=== PATIENT | female | born 1990 | race Caucasian/White ===

== ENCOUNTER 2021-01-25 15:31 | Outpatient (CLI) | payer OTHER ==
[2021-01-25 16:34] VITALS: BP 132/89; PULSE 69; RESP 17; TEMP 96
--- NOTE | 2021-01-27 07:51 | P.MSEPDOC ---
Presenting Problems - Arrival Data Date of Arrival on Unit: 01/25/21 Time of Arrival on Unit: 15:31 Mode of Transport: Ambulatory - Complaint OB-Reason for Admission/Chief Complaint: Other Comment: brown discharge this morning Medical History - Information : 1 Para: 0 Term: 0 : 0 Abortions: Spontaneous or Elective: 0 Number of Living Children: 0 - Gestational Age Gestational Age by ABIDA (wks/days): 34 Weeks and 6 Days Review of Systems - Review of Systems Constitutional: No problems Breast: No problems ENT: No problems Cardiovascular: No problems Respiratory: No problems Gastrointestinal: No problems Genitourinary: No problems Musculoskeletal: No problems Neurological: No problems Skin: No problems Vital Signs - Temperature Temperature: 96.0 F Temperature Source: Axillary - Pulse Right Brachial Pulse Rate: 69 Pulse Assessment Method: Automatic Cuff - Respirations Respiratory Rate: 17 Oxygen Delivery Method: Room Air O2 Sat by Pulse Oximetry: 98 - Blood Pressure Right Arm Blood Pressure: 132/89 Blood Pressure Mean: 103 Blood Pressure Source: Automatic Cuff Medical Screen Scoring (Pre) - Cervical Exam Dilation: Exam Deferred Effacement: Exam Deferred Membranes: Intact - Uterine Contractions Frequency: > 5 minutes apart = 1 Duration: N/A Intensity: N/A - Maternal Vital Signs Maternal Temperature: N/A Maternal Blood Pressure: N/A Signs of Preeclampsia: N/A Maternal Respirations: N/A - Maternal Trauma Maternal Trauma: N/A - Assessment - Baby A Baseline FHR: 135 Heart Rate - NICHD Category: Category I (Normal) = 0 NST: Reactive Position: N/A - Total Score - Baby A Total Score - Baby A: 1 - Total Score - Baby B Total Score - Baby B: 1 - Total Score - Baby C Total Score - Baby C: 1 - Level of Risk - Baby A Level of Risk - Baby A: Low (0-5) - Level of Risk - Baby B Level of Risk - Baby B: Low (0-5) - Level of Risk - Baby C Level of Risk - Baby C: Low (0-5) Physician Notification (Pre) - Physician Notified Physician Notified Date: 01/25/21 Physician Notified Time: 15:55 New Order Received: Yes - Notification Comment Comment: obtain reactive nst and 2nd bp then discharge pt home and follow up at scheduled appt on 01/31 Disposition - Disposition OB Disposition: Triage, Discharge to home, Written follow up instructions reviewed Discharge Date: 01/25/21 Discharge Time: 16:15 I agree with the RN Medical Screening Exam: Yes Case reviewed; plan agreed upon as documented in EMR&OBIX.: Yes Diagnosis: RELATED CONDITIONS, UNSPECIFIED, THIRD TRIMESTER
== END 2021-01-25 16:15 | disposition home or self-care (01) ==
LOC: FBPOP 15:31
PROVIDERS: ATTEND Obstetrics & Gynecology
DX: O26.93 Pregnancy related conditions, unspecified, third trimester (principal); Z3A.34 34 weeks gestation of pregnancy
CPT/HCPCS: 59025; 99213

== ENCOUNTER 2021-01-27 22:19 | Inpatient (IN) | payer OTHER ==
[2021-01-27] MEDS ORDERED: LIDOCAINE 0.5% (PF) 5 MG/ML (50 ML SDV) SQ PRN (23:12)
[2021-01-27] MEDS ORDERED: TERBUTALINE 1 MG/ML VIAL SQ PRN (23:12)
[2021-01-27] MEDS ORDERED: OXYTOCIN 10 UNIT/ML 1 ML VIAL IM PRN (23:12)
[2021-01-27] MEDS ORDERED: CARBOPROST TROMETHAMINE 250 MCG/ML 1 ML AMP IM PRN (23:12)
[2021-01-27] MEDS ORDERED: METHYLERGONOVINE 0.2 MG/ML 1 ML AMP IM PRN (23:12)
[2021-01-27] MEDS ORDERED: OXYTOCIN 30 UNITS/500 ML NS 30 UNIT in SALINE 1 500ML.BAG IV SCH (23:15)
[2021-01-27] MEDS ORDERED: AMPICILLIN 2,000 MG in SODIUM CHLORIDE 0.9% 100 ML IVPB ONE (23:30)
[2021-01-27] MEDS ORDERED: BETAMET ACET-BETAMETH SOD PHOS 6 MG/ML MDV IM SCH (23:30)
[2021-01-27] MEDS: LACTATED RINGERS 1,000 ML IV SCH (23:32)
[2021-01-28] MEDS ORDERED: BUTORPHANOL 1 MG/ML 1 ML VIAL IV PRN (01:13)
[2021-01-28 01:59] LABS: Basophils % (A) 0 %; Eosinophils # (A) 0.1 k/uL (0-0.7); Eosinophils % (A) 1 %; HCT 33.1 % (34.0-46.0); HGB 11.3 gm/dL (11.4-16.0); Lymphocytes # (A) 2.9 k/uL (1.0-4.8); Lymphocytes % (A) 25 %; MCH 28.3 pg (25.0-35.0); MCHC 34.2 g/dL (31.0-37.0); MCV 82.6 fL (80.0-100.0); Mean Platelet Volume 8.4; Monocytes # (A) 0.6 k/uL (0-1.0); Monocytes % (A) 5 %; Neutrophils # (A) 7.8 k/uL (1.3-7.7); Neutrophils % (A) 67 %; Platelet Count 318 k/uL (150-450); RBC 4.01 m/uL (3.80-5.40); RDW 13.5 % (11.5-15.5); WBC 11.7 k/uL (3.8-10.6)
[2021-01-28] MEDS ORDERED: fentaNYL (PF) 50 MCG/ML 5 ML AMP ONE (03:18)
[2021-01-28] MEDS ORDERED: ROPIVACAINE 5MG/ML 20ML VIAL ONE (03:18)
[2021-01-28] MEDS ORDERED: SODIUM CHLORIDE 0.9% 100 ML BAG ONE (03:18)
[2021-01-28] MEDS ORDERED: AMPICILLIN 1,000 MG in SODIUM CHLORIDE 0.9% 50 ML IVPB SCH (03:30)
--- NOTE | 2021-01-28 04:50 | P.HPOB ---
History of Present Illness H&P Date: 01/28/21 Chief Complaint: Spontaneous rupture of membranes This is a 31-year-old female 1 para 0 with an estimated date of confinement of 03/02/2021, estimated gestational age of 35 and one sevenths weeks, who presents for complaints of spontaneous rupture membranes at approx imately 7 PM. She stated she went to the bathroom and urinated but then it didn't stop. She had to wear a pad and it was saturated. She states she was feeling some mild contractions or cramping. She had not had her group B streptococcus culture in the office yet. She denies any other complications during this . care has been with Dr. Umanzor and has been uncomplicated per patient. 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 Review of Systems Constitutional: Denies chills, Denies fever Eyes: denies blurred vision, denies pain Ears, nose, mouth and throat: Denies headache, Denies sore throat Cardiovascular: Denies chest pain, Denies shortness of breath Respiratory: Denies cough Gastrointestinal: Reports abdominal pain (Irregular contractions) Genitourinary: Reports pelvic pain, Reports Musculoskeletal: Reports low back pain Integumentary: Denies pruritus, Denies rash Neurological: Denies numbness, Denies weakness Psychiatric: Reports anxiety, Reports depression Past Medical History Past Medical History: No Reported History Additional Past Medical History / Comment(s): Born with "hole in heart" History of Any Multi-Drug Resistant Organisms: None Reported Additional Past Surgical History / Comment(s): Pt reports having open heart surgery when she was born and wisdom teeth removal Past Anesthesia/Blood Transfusion Reactions: No Reported Reaction Past Psychological History: Depression Smoking Status: Never smoker Past Drug Use History: None Reported - Past Family History Mother Family Medical History: No Reported History Additional Family Medical History / Comment(s): Pt states grandmother is a diabetic Medications and Allergies Home Medications Medication Instructions Recorded Confirmed Type Pnv No.95/Ferrous Fum/Folic AC 1 tab PO DAILY 01/25/21 01/27/21 History [ Multivitamin Tablet] Sertraline [Zoloft] 100 mg PO DAILY 01/25/21 01/27/21 History Allergies Allergy/AdvReac Type Severity Reaction Status Date / Time No Known Allergies Allergy Verified 01/25/21 15:40 Exam Osteopathic Statement: *. No significant issues noted on an osteopathic structural exam other than those noted in the History and Physical/Consult. Vital Signs Temp Pulse Resp BP Pulse Ox 01/27/21 23:02 96.9 F L 70 16 141/72 96 01/27/21 22:30 96.1 F L 72 18 140/69 95 Intake and Output 01/27/21 01/27/21 01/28/21 14:59 22:59 06:59 Other: Weight 106.141 kg 106.141 kg HEENT: Within normal limits Heart: Regular rate and rhythm Lungs: Clear to auscultation bilaterally Abdomen: Cervix: 2 cm/60%/-2 station on admission. An Essure is positive with clear fluid noted. heart tones: Reactive, category 1 on admission. Contractions-irregular Extremities: Negative Homans Results Result Diagrams: 01/28/21 01:32 Abnormal Lab Results - Last 24 Hours (Table) 01/28/21 Range/Units 01:32 WBC 11.7 H (3.8-10.6) k/uL Hgb 11.3 L (11.4-16.0) gm/dL Hct 33.1 L (34.0-46.0) % Neutrophils # 7.8 H (1.3-7.7) k/uL Assessment and Plan (1) 35 weeks gestation of Current Visit: Yes Status: Acute Code(s): Z3A.35 - 35 WEEKS GESTATION OF SNOMED Code(s): 79368310 (2) premature rupture of membranes (PPROM) with onset of labor within 24 hours of rupture in third trimester, antepartum Current Visit: Yes Status: Acute Code(s): O42.013 - PRETRM GLENDY ROM, ONSET LABOR W/N 24 HOURS OF RUPT, THIRD TRI SNOMED Code(s): 03003005527664071 Plan: Will admit for spontaneous rupture of membranes. Will start antibiotic prophylaxis for unknown group B streptococcus. Will give betamethasone 12 mg every 24 hours 2 doses. Will start oxytocin augmentation of labor. Expectant management. Patient is advised the baby will go to level I nursery for observation due to prematurity.
[2021-01-28] MEDS ORDERED: HYDROCORTISONE 2.5% RECTAL CREAM 30 GM TUBE RECTAL PRN (07:27)
[2021-01-28] MEDS ORDERED: diphenhydrAMINE 50 MG/ML 1 ML VIAL IVP PRN ×2 (07:27)
[2021-01-28] MEDS ORDERED: LANOLIN CREAM 5 GM TUBE TOPICAL PRN (07:27)
[2021-01-28] MEDS ORDERED: OXYTOCIN 30 UNITS/500 ML NS 30 UNIT in SALINE 1 500ML.BAG IV SCH (07:27)
[2021-01-28] MEDS ORDERED: diphenhydrAMINE 50 MG CAP PO PRN (07:27)
[2021-01-28] MEDS ORDERED: BENZOCAINE/MENTHOL SPRAY 1 GM/SPRAY AEROSOL TOPICAL PRN (07:27)
[2021-01-28] MEDS ORDERED: diphenhydrAMINE 25 MG CAP PO PRN (07:27)
[2021-01-28] MEDS ORDERED: SIMETHICONE 80 MG CHEWABLE PO PRN (07:27)
[2021-01-28] MEDS ORDERED: ZOLPIDEM 5 MG TAB PO PRN (07:27)
[2021-01-28] MEDS ORDERED: ACETAMINOPHEN TAB 325 MG TAB PO PRN (07:27)
--- NOTE | 2021-01-28 07:39 | P.PROBDLV ---
Vaginal Delivery Note - . Vaginal Delivery Note: The patient progressed to complete dilation after oxytocin augmentation of labor. She did receive epidural anesthesia. She did receive 1 dose of Celestone due to premature rupture of membranes in the late period. Once reaching complete, she began pushing. 's head came to a crown. With one further push, the infant's head delivered across the perineum followed by the anterior shoulder. Nose and mouth were bulb suctioned at the perineum. With one further push, the remainder the infant easily delivered and was placed on mother's abdomen. There was a cord wrapped around one arm. Cord was clamped and cut and was taken to warmer for evaluation by level I nursery staff. A viable female was noted with scores of 7 at 1 minute and 9 at 5 minutes and infant weight of 6 lbs. 2 oz. Placenta delivered shortly thereafter, intact, with a three-vessel cord. Uterus contracted well after oxytocin was given and uterine massage was carried out. Also a gloved hand was placed within the uterine cavity and some clots were removed. No further membranous tissue was noted. Inspection of the perineum revealed some mild periurethral abrasions but these were noted to be hemostatic. Estimated blood loss is approximately 200 mL's. Mother and infant are in stable condition. Infant will be taken to level I nursery per protocol due to prematurity.
[2021-01-28] MEDS: SERTRALINE 100 MG TAB PO SCH (08:51)
[2021-01-28] MEDS: IBUPROFEN 600 MG TAB PO SCH ×3 (08:51→22:23)
[2021-01-28] MEDS: SENNOSIDES-DOCUSATE SODIUM 1 EACH TAB PO SCH ×2 (08:51→23:32)
[2021-01-28] MEDS ORDERED: MEASLES-MUMPS-RUBELLA VACC/PF 12,500 UNIT/0.5 ML VIAL SQ ONE (11:53)
[2021-01-29 06:34] LABS: Basophils # (A) 0.1 k/uL (0-0.2); Basophils % (A) 0 %; Eosinophils % (A) 0 %; HCT 33.9 % (34.0-46.0); Lymphocytes # (A) 3.5 k/uL (1.0-4.8); Lymphocytes % (A) 19 %; MCH 27.6 pg (25.0-35.0); MCHC 32.6 g/dL (31.0-37.0); MCV 84.9 fL (80.0-100.0); Mean Platelet Volume 8.3; Monocytes # (A) 0.8 k/uL (0-1.0); Monocytes % (A) 4 %; Neutrophils # (A) 13.8 k/uL (1.3-7.7); Neutrophils % (A) 75 %; Platelet Count 366 k/uL (150-450); RDW 13.7 % (11.5-15.5); WBC 18.5 k/uL (3.8-10.6)
--- NOTE | 2021-01-29 06:50 | P.PNOBGVD ---
Subjective - Subjective Patient reports: Reports appetite normal, Reports voiding normally, Reports pain well controlled, Reports ambulating normally : doing well, in NICU Objective - Latest Vital Signs Latest vital signs: Vital Signs Temp Pulse Resp BP Pulse Ox 01/28/21 23:50 98.3 F 69 16 105/68 99 01/28/21 20:00 98.2 F 72 15 101/65 98 01/28/21 15:39 98.3 F 81 16 130/67 01/28/21 12:00 98.0 F 77 16 137/67 01/28/21 09:30 98.3 F 82 16 127/60 01/28/21 09:00 81 16 122/61 01/28/21 08:30 80 16 115/57 01/28/21 08:15 88 16 139/60 01/28/21 08:00 84 16 127/60 01/28/21 07:45 97.0 F L 84 16 121/58 01/28/21 07:30 97.3 F L 107 H 16 133/75 Intake and Output 01/28/21 01/28/21 01/29/21 14:59 22:59 06:59 Intake Total 300 Output Total 250 Balance -250 300 Intake: IV 300 Output: Urine 250 Other: # Voids 2 1 - Exam Lungs: bilateral: normal Chest: Normal S1, Normal S2 Extremities: Present: normal Abdomen: Present: normal appearance, soft Uterus: Present: normal, firm - Labs Labs: Abnormal Lab Results - Last 24 Hours (Table) 01/29/21 Range/Units 06:13 WBC 18.5 H (3.8-10.6) k/uL Hgb 11.0 L (11.4-16.0) gm/dL Hct 33.9 L (34.0-46.0) % Neutrophils # 13.8 H (1.3-7.7) k/uL Assessment and Plan Assessment: day #1. Patient is resting without complaints. Due to prematurity baby is still in special care nursery and doing well. Vital signs are stable she's afebrile. Uterus is firm nontender and she is having normal lochia. My impression this is a normal course. Plan is to continue routine care discharge home tomorrow (1) 35 weeks gestation of Current Visit: Yes Status: Acute Code(s): Z3A.35 - 35 WEEKS GESTATION OF SNOMED Code(s): 41839692 (2) premature rupture of membranes (PPROM) with onset of labor within 24 hours of rupture in third trimester, antepartum Current Visit: Yes Status: Acute Code(s): O42.013 - PRETRM GLENDY ROM, ONSET LABOR W/N 24 HOURS OF RUPT, THIRD TRI SNOMED Code(s): 11441129987360694
[2021-01-29] MEDS: IBUPROFEN 600 MG TAB PO SCH ×4 (07:53→23:37)
[2021-01-29] MEDS: SERTRALINE 100 MG TAB PO SCH (07:53)
[2021-01-29] MEDS: SENNOSIDES-DOCUSATE SODIUM 1 EACH TAB PO SCH ×2 (07:53→19:44)
[2021-01-29] MEDS: PRENATAL VIT-IRON-FOLIC ACID 1 EACH CAP PO SCH ×2 (09:22→09:28)
[2021-01-29] MEDS: LACTATED RINGERS 1,000 ML IV SCH (09:28)
--- NOTE | 2021-01-29 10:32 | P.PN ---
Progress Note - Text Progress Note Date: 01/29/21 Abdomen is overall doing very well. She does have a fine rash on her abdomen. Difficult states it is from antibiotics or from her MMR. She has minimal to moderate itching. We will have her try Benadryl and that is working we'll add a steroid cream to try and control the symptoms. That said otherwise she is doing very well this morning.
[2021-01-29] MEDS: TRIAMCINOLONE 0.1% CREAM 80 GM TUBE TOPICAL SCH ×2 (13:40→19:44)
[2021-01-29 23:37] VITALS: RESP 17
[2021-01-30] MEDS: IBUPROFEN 600 MG TAB PO SCH ×3 (03:34→12:12)
[2021-01-30] MEDS: SENNOSIDES-DOCUSATE SODIUM 1 EACH TAB PO SCH (07:56)
[2021-01-30] MEDS: PRENATAL VIT-IRON-FOLIC ACID 1 EACH CAP PO SCH (07:56)
[2021-01-30] MEDS: SERTRALINE 100 MG TAB PO SCH (07:57)
--- NOTE | 2021-01-30 08:13 | P.PNOBGVD ---
Subjective - Subjective Patient reports: Reports appetite normal, Reports voiding normally, Reports pain well controlled, Reports ambulating normally : doing well Objective - Latest Vital Signs Latest vital signs: Vital Signs Temp Pulse Resp BP Pulse Ox 01/29/21 23:36 97.9 F 68 17 128/77 98 01/29/21 16:00 98.7 F 75 16 124/70 - Exam Lungs: bilateral: normal Chest: Normal S1, Normal S2 Extremities: Present: normal Abdomen: Present: normal appearance, soft Uterus: Present: normal, firm Assessment and Plan Assessment: Post day #2. Patient is resting without complaints. Vital signs are stable and she is afebrile. Uterus is firm nontender and she is having normal lochia. My impression she is a normal course. Plan is to continue routine care discharge home later today (1) 35 weeks gestation of Current Visit: Yes Status: Acute Code(s): Z3A.35 - 35 WEEKS GESTATION OF SNOMED Code(s): 70199757 (2) premature rupture of membranes (PPROM) with onset of labor within 24 hours of rupture in third trimester, antepartum Current Visit: Yes Status: Acute Code(s): O42.013 - PRETRM GLENDY ROM, ONSET LABOR W/N 24 HOURS OF RUPT, THIRD TRI SNOMED Code(s): 09422681091840638
--- NOTE | 2021-01-30 08:16 | P.DS ---
Providers Date of admission: 01/27/21 22:58 Expected date of discharge: 01/30/21 Attending physician: Janes Umanzor Primary care physician: Stated None - Discharge Diagnosis(es) (1) 35 weeks gestation of Current Visit: Yes Status: Acute (2) premature rupture of membranes (PPROM) with onset of labor within 24 hours of rupture in third trimester, antepartum Current Visit: Yes Status: Acute Hospital Course: Please see dictated H&P and delivery note per Dr. Collado on this patient's admission. In brief summary this is a pleasant 31-year-old 1 para 0 female 35 weeks gestation admitted to labor and delivery with spontaneous rupture membranes. Patient was on have a vaginal delivery viable female . Please see dictated delivery note. On post day #2 patient's felt be stable for discharge home follow up with Dr. Umanzor in 6 weeks Procedures: Normal spontaneous vaginal delivery Patient Condition at Discharge: Good Plan - Discharge Summary New Discharge Prescriptions: New Ibuprofen [Motrin] 600 mg PO Q6H #30 tab No Action Sertraline [Zoloft] 100 mg PO DAILY Pnv No.95/Ferrous Fum/Folic AC [ Multivitamin Tablet] 1 tab PO DAILY Discharge Medication List Pnv No.95/Ferrous Fum/Folic AC [ Multivitamin Tablet] 1 tab PO DAILY 01/25/21 [History] Sertraline [Zoloft] 100 mg PO DAILY 01/25/21 [History] Ibuprofen [Motrin] 600 mg PO Q6H #30 tab 01/30/21 [Rx] Follow up Appointment(s)/Referral(s): Janes Umanzor DO [Doctor of Osteopathic Medicine] - 03/15/21 11:00 am Patient Instructions/Handouts: Vaginal Delivery (DC) Activity/Diet/Wound Care/Special Instructions: No intercourse or anything per vagina for 6 weeks. Please call if any fever, chills, excessive vaginal bleeding, and/or abdominal pain Discharge Disposition: HOME SELF-CARE
[2021-01-30 09:40] VITALS: BP 131/71; PULSE 76; TEMP 98.1
[2021-01-30] MEDS: TRIAMCINOLONE 0.1% CREAM 80 GM TUBE TOPICAL SCH (12:13)
== END 2021-01-30 15:35 | disposition home or self-care (01) | DRG 807 ==
LOC: FBPOP 22:19 → 4FBP 22:58
PROVIDERS: ADMIT Obstetrics & Gynecology; ATTEND Obstetrics & Gynecology
PROC: 10E0XZZ Delivery of Products of Conception, External Approach (ICD-10-PCS; principal; 2021-01-28)
DX: O42.013 Preterm premature rupture of membranes, onset of labor within 24 hours of rupture, third trimester (principal); Z37.0 Single live birth; Z3A.35 35 weeks gestation of pregnancy; Z79.899 Other long term (current) drug therapy; Z83.3 Family history of diabetes mellitus
CPT/HCPCS: 59025; 84112; 85025; 86850; 86900; 86901; 88307; 90707; 99213

== ENCOUNTER → 2022-07-24 | Outpatient (CLI) | payer OTHER ==
--- NOTE | 2022-07-24 11:43 | US ---
EXAMINATION TYPE: Transabdominal DATE OF EXAM: 07/24/2022 11:08 AM COMPARISON: NONE CLINICAL HISTORY: Z36.89 ENCOUNTER FOR OTHER SPECIFIED SC. early OB, patient does not know LMP, EXAM PERFORMED: OBTA EXAM MEASUREMENTS: GESTATIONAL AGE / DATING Physician Established: Not yet established Dates by LMP: LMP unknown Dates by First Scan: No previous this is first scan Dates by Current Scan for: (13 weeks/6 days) EDC: 01/23/2023 MATERNAL ANATOMY Uterus: 16.8 x 10.1 x 6.5cm Right Ovary: 2.5 x 2.0 x 1.4cm Left Ovary: 2.8 x 1.9 x 1.5cm Post CDS / Adnexa: wnl Presence of free fluid: no Presence of corpus luteal cyst: not seen Presence of subchorionic bleed: no GESTATION / SURVEY CRL: 7.7cm (13 weeks/6 days) MSD: wnl Yolk Sac (normal less than 6mm): not seen Heart Rate: 161 bpm Rhythm: Normal IUP: Viable IUP Age Appropriate Anatomy Calvarium: Visualized Date of LMP: unknown IMPRESSION: Single live intrauterine gestation with estimated gestational age of 13 weeks 6 days and estimated du e date of 01/23/2023.
== END | disposition home or self-care (01) ==
LOC: RADUSWWP 10:48
PROVIDERS: ATTEND Obstetrics & Gynecology
DX: Z36.89 Encounter for other specified antenatal screening (principal); Z3A.13 13 weeks gestation of pregnancy
CPT/HCPCS: 76801

== ENCOUNTER 2022-12-13 01:54 | Outpatient (CLI) | payer OTHER ==
[2022-12-13] MEDS ORDERED: BETAMET ACET-BETAMETH SOD PHOS 6 MG/ML MDV IM SCH (02:30)
[2022-12-13 02:52] LABS: Basophils # (A) 0.1 k/uL (0-0.2); Basophils % (A) 0 %; Eosinophils # (A) 0.2 k/uL (0-0.7); Eosinophils % (A) 2 %; HCT 37.5 % (34.0-46.0); HGB 12.6 gm/dL (11.4-16.0); Lymphocytes # (A) 2.6 k/uL (1.0-4.8); Lymphocytes % (A) 25 %; MCH 28.6 pg (25.0-35.0); MCHC 33.5 g/dL (31.0-37.0); MCV 85.4 fL (80.0-100.0); Mean Platelet Volume 8.5; Monocytes # (A) 0.5 k/uL (0-1.0); Monocytes % (A) 5 %; Neutrophils # (A) 6.7 k/uL (1.3-7.7); Neutrophils % (A) 64 %; Platelet Count 266 k/uL (150-450); RDW 13.5 % (11.5-15.5); WBC 10.6 k/uL (3.8-10.6)
--- NOTE | 2022-12-13 03:20 | P.HPOB ---
History of Present Illness H&P Date: 12/13/22 Chief Complaint: Leaking of fluid This patient is a 32-year-old 2 para 1 female estimated date of confinement 01/23/2023 estimated gestational age 34-2/7 weeks gestation who presents to labor and delivery with complaints of gush of fluid at approximately 12:50 a.m. today. [facility] She has been getting co-care secondary to history of previous PROM last at 35 weeks. Patient was most recently at maternal medicine on November 29 and baby at that time weighed 2235 gms. patient's been getting weekly progesterone injections. otherwise appears to be complicated by depression and Zoloft use. Patient presents to labor and delivery here has a positive amnio sure an examination shows her to be 3 cm dilated 60% effaced. heart tones are category 1. Having contractions every 3-5 minutes which appear to be mild. Review of Systems Genitourinary: Reports Menstruation: Reports amenorrhea Past Medical History Past Medical History: No Reported History Additional Past Medical History / Comment(s): Born with "hole in heart"; previous 35 week vaginal delivery due to PROM History of Any Multi-Drug Resistant Organisms: None Reported Additional Past Surgical History / Comment(s): Pt reports having open heart surgery when she was born and wisdom teeth removal Past Anesthesia/Blood Transfusion Reactions: No Reported Reaction Past Psychological History: Depression Smoking Status: Never smoker - Past Family History Mother Family Medical History: No Reported History Additional Family Medical History / Comment(s): Pt states grandmother is a diabetic Medications and Allergies Home Medications Medication Instructions Recorded Confirmed Type Pnv No.95/Ferrous Fum/Folic AC 1 tab PO DAILY 01/25/21 12/13/22 History [ Multivitamin Tablet] Sertraline [Zoloft] 100 mg PO DAILY 01/25/21 12/13/22 History Allergies Allergy/AdvReac Type Severity Reaction Status Date / Time No Known Allergies Allergy Verified 01/25/21 15:40 Exam Intake and Output 12/12/22 12/12/22 12/13/22 14:59 22:59 06:59 Other: Weight 102.058 kg - OBG Physical Exam Abdomen: bowel sounds normal, no diffuse tenderness, no bruit present, no guarding noted, no hepatomegaly, no splenomegaly, no mass Vulva: both: normal Vagina: no discharge Cervix: no lesion (3 cm, 60% effaced -2 station per RN.), no discharge Uterus: enlarged Results labs show she is B+, rubella immune, RPR is nonreactive, hepatitis B and C are negative, HIV is nonreactive, group B strep is unknown. Bedside ultrasound confirms vertex presentation Result Diagrams: 12/13/22 02:35 Assessment and Plan Assessment: This is a 32-year-old 2 para 1 female 34-2/7 weeks gestation with premature rupture membranes. Patient's cervix is 3 cm dilated and she is having contractions that appear to be very mild. Patient's felt be stable for transfer to a tertiary facility. I did discuss with [facility] labor and delivery in the agreed to transfer secondary to prematurity. I discussed this with the patient and her partner and they are in agreement to transfer. Plan is to administer Celestone and antibiotics. (1) 34 weeks gestation of Current Visit: Yes Status: Acute Code(s): Z3A.34 - 34 WEEKS GESTATION OF SNOMED Code(s): 81323485 (2) PROM w/onset labor within 24 hours rupture in 3rd trimester Current Visit: Yes Status: Acute Code(s): O42.013 - PRETRM GLENDY ROM, ONSET LABOR W/N 24 HOURS OF RUPT, THIRD TRI SNOMED Code(s): 52196035886237016
--- NOTE | 2022-12-13 03:27 | P.DS ---
Providers Expected date of discharge: 12/13/22 Attending physician: Rodo Estrella Primary care physician: Stated None - Discharge Diagnosis(es) (1) 34 weeks gestation of Current Visit: Yes Status: Acute (2) PROM w/onset labor within 24 hours rupture in 3rd trimester Current Visit: Yes Status: Acute Hospital Course: Please see dictated H&P on this patient's admission and transfer. In brief summary this is a 32-year-old 2 para 1 female 34-2/7 weeks gestation who is admitted to labor and delivery with spontaneous rupture membranes at 1250 this morning. Patient's found to be grossly ruptured membranes. heart tones are reassuring. She is having contractions but they are mild. Due to prematurity, I contacted [facility] for transfer for care. Patient was accepted for transfer transferred there for further care and probable delivery. Patient Condition at Discharge: Stable Plan - Discharge Summary New Discharge Prescriptions: No Action Sertraline [Zoloft] 100 mg PO DAILY Pnv No.95/Ferrous Fum/Folic AC [ Multivitamin Tablet] 1 tab PO DAILY Discharge Medication List Pnv No.95/Ferrous Fum/Folic AC [ Multivitamin Tablet] 1 tab PO DAILY 01/25/21 [History] Sertraline [Zoloft] 100 mg PO DAILY 01/25/21 [History] Discharge Disposition: DC/TRNS INTERMEDIATE CARE FAC
[2022-12-13 03:30] LABS: Appearance,Urine Cloudy (Clear); Bacteria,Urine Rare /hpf; Bilirubin,Urine Negative (Negative); Blood,Urine Moderate (Negative); Budding Yeast,Urine Occasional /hpf; Color,Urine Light Yellow; Glucose,Urine (UA) Negative (Negative); Ketones,Urine Negative (Negative); Leukocyte Esterase,Urine Negative (Negative); Mucus,Urine Rare /hpf; Nitrite,Urine Negative (Negative); PH, Urine 7.5 (5.0-8.0); Protein,Urine 2+ (Negative); RBC,Urine 152 /hpf (0-5); Specific Gravity,Urine 1.009 (1.001-1.035); Squamous Epithelial Cell,Urine 2 /hpf (0-4); Transitional Epi Cells,Urine <1 /hpf (0-1); Urobilinogen,Urine <2.0 mg/dL (<2.0); WBC,Urine 2 /hpf (0-5)
[2022-12-13] MEDS ORDERED: AMPICILLIN 2,000 MG in SODIUM CHLORIDE 0.9% 100 ML IVPB ONE (03:30)
[2022-12-13 04:26] VITALS: BP 122/90; PULSE 80; RESP 15; TEMP 96.6
--- NOTE | 2022-12-13 06:29 | P.MSEPDOC ---
Presenting Problems - Arrival Data Date of Arrival on Unit: 12/13/22 Time of Arrival on Unit: 01:55 Mode of Transport: Ambulatory - Complaint OB-Reason for Admission/Chief Complaint: Rule Out SROM Comment: Pt presents to triage with c/o contractions approximately 5 minutes apart for. past hour rating castillo 6/10. Pt also c/o leaking fluid starting 0050 this am. Medical History - Information : 2 Para: 1 : 1 Number of Living Children: 1 - Gestational Age Gestational Age by ABIDA (wks/days): 34 Weeks and 1 Days - History Complications: Prior Review of Systems - Review of Systems Constitutional: No problems Breast: No problems ENT: No problems Cardiovascular: No problems Respiratory: No problems Gastrointestinal: No problems Genitourinary: No problems Musculoskeletal: No problems Neurological: No problems Skin: No problems Vital Signs - Temperature Temperature: 96.6 F Temperature Source: Temporal Artery Scan - Pulse Pulse Oximetery Pulse Rate: 80 Pulse Assessment Method: Pulse Oximetry - Respirations Respiratory Rate: 15 Oxygen Delivery Method: Room Air O2 Sat by Pulse Oximetry: 98 - Blood Pressure Right Arm Blood Pressure: 122/90 Blood Pressure Mean: 100 Blood Pressure Source: Automatic Cuff Medical Screen Scoring - Cervical Exam Dilation (cm): 3 Effacement (%): 60 Station: -2 Membranes: Ruptured - Uterine Contractions Frequency From (mins): 3 Frequency To (mins): 3 Duration From (seconds): 60 Duration To (seconds): 100 Intensity: Moderate Resting: Soft to palpation - Assessment - Baby A Baseline FHR: 130 Heart Rate - NICHD Category: Category I (Normal) NST: Reactive Physician Notification - Physician Notified Physician Notified Date: 12/13/22 Physician Notified Time: 02:17 Physician: Rodo Estrella New Order Received: Yes - Notification Comment Comment: Orders given to RN to admin 1 dose. of celestone 12mg IM, send a CBC lab and Urinalysis. Dr. Estrella is on his way in patient will be transfered to higher level of care for delivery. Maternal Triage Index - Urgent/Priority 2 Urgent Priority 2: Yes Provider Notified: Rodo Estrella Provider Notified Time: 02:17 Criteria Met for Priority 2: Pt presents to triage with c/o contractions approximately 5 minutes apart for. past hour rating castillo 6/10. Pt also c/o leaking fluid starting 0050 this am. Positive amnisure 34 1/ weeks. Disposition - Disposition OB Disposition: Transfer to other dept./facility Transferred to:: [id number] Discharge Date: 12/13/22 Discharge Time: 00:00 I agree with the RN Medical Screening Exam: Yes Case reviewed; plan agreed upon as documented in EMR&OBIX.: Yes Diagnosis: RELATED CONDITIONS, UNSPECIFIED, THIRD TRIMESTER (Please see dictated H&P, transfer note on this patient's admission and discharge)
== END 2022-12-13 03:51 ==
LOC: FBPOP 01:54
PROVIDERS: ATTEND Obstetrics & Gynecology
DX: O26.893 Other specified pregnancy related conditions, third trimester (principal); Z3A.34 34 weeks gestation of pregnancy; Z83.3 Family history of diabetes mellitus; O42.913 Preterm premature rupture of membranes, unspecified as to length of time between rupture and onset of labor, third trimester
CPT/HCPCS: 59025; 96360; 96372; 84112; 86900; 86901; 85025; 86850; 81001; G0463; J0290; J0702; 36415; 96361; 96365; 99214

== ENCOUNTER 2023-02-08 07:24 | Day surgery (SDC) | payer OTHER ==
[2023-02-06 08:48] VITALS: BMI 30.9
--- NOTE | 2023-02-08 06:47 | P.HPOB ---
History of Present Illness H&P Date: 02/08/23 Chief Complaint: family planning 33-year-old presents for laparoscopic tubal ligation. Review of Systems All systems: negative Constitutional: Denies chills, Denies fever Eyes: denies blurred vision, denies pain Ears, nose, mouth and throat: Denies headache, Denies sore throat Cardiovascular: Denies chest pain, Denies shortness of breath Respiratory: Denies cough Gastrointestinal: Denies abdominal pain, Denies diarrhea, Denies nausea, Denies vomiting Genitourinary: Denies dysuria, Denies hematuria Musculoskeletal: Denies myalgias Integumentary: Denies pruritus, Denies rash Neurological: Denies numbness, Denies weakness Psychiatric: Denies anxiety, Denies depression Endocrine: Denies fatigue, Denies weight change Past Medical History Past Medical History: No Reported History Additional Past Medical History / Comment(s): 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 History of Any Multi-Drug Resistant Organisms: None Reported Additional Past Surgical History / Comment(s): Open heart surgery as an infant, wisdom teeth removed. Past Anesthesia/Blood Transfusion Reactions: No Reported Reaction Past Psychological History: Depression Smoking Status: Never smoker Past Alcohol Use History: None Reported Past Drug Use History: None Reported - Past Family History Mother Family Medical History: No Reported History Additional Family Medical History / Comment(s): Pt states grandmother is a diabetic Medications and Allergies Home Medications Medication Instructions Recorded Confirmed Type Sertraline [Zoloft] 100 mg PO HS 01/25/21 02/06/23 History Allergies Allergy/AdvReac Type Severity Reaction Status Date / Time No Known Allergies Allergy Verified 02/06/23 08:38 Exam Osteopathic Statement: *. No significant issues noted on an osteopathic structural exam other than those noted in the History and Physical/Consult. Heart: Regular rate and rhythm Lungs: Clear to auscultation bilaterally Abdomen: Soft, nontender Extremities: Negative Homans sign Assessment and Plan (1) Family planning Status: Acute Code(s): Z30.09 - ENCOUNTER FOR OTH GENERAL CNSL AND ADVICE ON CONTRACEPTION SNOMED Code(s): 932754693 Plan: Laparoscopic tubal ligation
[~2023-02-08 07:24] MED LIST: LACTATED RINGERS 1,000 ML IV SCH; LIDOCAINE 1% (10MG/ML) FOR IV START INTRADERMA PRN
[2023-02-08] MEDS ORDERED: ONDANSETRON 4 MG/2 ML VIAL ONE (07:58)
[2023-02-08] MEDS ORDERED: DEXAMETHASONE SOD PHOSPHATE 4 MG/ML 1 ML VIAL IVP ONE (08:14)
[2023-02-08] MEDS ORDERED: PROPOFOL 10 MG/ML 20 ML VIAL IV ONE (08:28)
[2023-02-08] MEDS ORDERED: NEOSTIGMINE 1 MG/ML 10 ML VIAL ONE (08:28)
[2023-02-08] MEDS ORDERED: LIDOCAINE 2% INJ 20 MG/ML (2 ML VIAL) ONE (08:28)
[2023-02-08] MEDS ORDERED: SUCCINYLCHOLINE CHLORIDE 200 MG/10 ML VIAL IV ONE (08:28)
[2023-02-08] MEDS ORDERED: MIDAZOLAM 2 MG/2 ML VIAL ONE (08:28)
[2023-02-08] MEDS ORDERED: GLYCOPYRROLATE 0.2 MG/ML 2 ML VIAL ONE (08:28)
[2023-02-08] MEDS ORDERED: fentaNYL (PF) 50 MCG/ML 2 ML AMP ONE (08:28)
[2023-02-08] MEDS ORDERED: ROCURONIUM 10 MG/ML (5 ML VIAL) IV ONE (08:28)
[2023-02-08] MEDS ORDERED: HYDROmorphone (PF) 1 MG/ML ONE (08:28)
[2023-02-08] MEDS ORDERED: KETOROLAC 15 MG/ML 1 ML VIAL ONE (08:28)
[2023-02-08] MEDS ORDERED: BUPIVACAINE (PF) 0.25% 30 ML VIAL SQ ONE ×2 (08:50)
--- NOTE | 2023-02-08 09:05 | P.OP ---
Date of Procedure: 02/08/23 Preoperative Diagnosis: 1. Family planning Postoperative Diagnosis: 1. Family planning Procedure(s) Performed: Laparoscopic tubal ligation Anesthesia: JUDITH Surgeon: Quita Thomas Estimated Blood Loss (ml): 2 IV fluids (ml): 400 Urine output (ml): 10 Pathology: none sent Condition: stable Disposition: PACU Operative Findings: Normal uterus, tubes, ovaries Description of Procedure: Patient was taken to the operating room where general anesthesia was obtained without difficulty. She was prepped and draped in normal sterile fashion in the dorsal lithotomy position, legs placed in the Christian stirrups. Bladder drained of all urine. Sunray speculum placed in the vagina and the anterior lip the cervix was grasped with single-tooth tenaculum. The uterus is sounded to 7 cm and the kroner manipulator was placed. Attention was then turned to the abdomen and gloves were changed. A 10 mm infraumbilical incision was made the scalpel and 10 mm optical trocar was placed under direct visualization. A 5 mm suprapubic Incision was made and a 5 mm optical trocar was placed under direct visualization. Survey of the pelvis revealed normal uterus tubes and ovaries. The left fallopian tube was grasped with a Kleppinger and fulgurated 2-3 cm on this side in the ampullar portion. The right fallopian tube was grasped with a Kleppinger and fulgurated 2-3 cm in the ampullar portion. All instruments were then removed from the abdomen and vagina. The 10 mm infraumbilical incision was closed with 0 Vicryl and the fascial layer and then 4-0 Vicryl in a subcuticular fashion. The 5 mm incision was closed with 4-0 Vicryl in a subcuticular fashion. Patient tolerated procedure well, sponge and instrument counts correct 2 and she was taken to recovery room in stable condition.
[2023-02-08 09:17] VITALS: TEMP 97.5
[2023-02-08 09:32] VITALS: RESP 16
[2023-02-08 11:06] VITALS: BP 112/67; PULSE 51
== END 2023-02-08 11:40 | disposition home or self-care (01) ==
LOC: OR 07:24
PROVIDERS: ATTEND Obstetrics & Gynecology
DX: Z30.2 Encounter for sterilization (principal); F32.A Depression, unspecified; Z79.899 Other long term (current) drug therapy
CPT/HCPCS: 81025; 58670; J2250; J0330; J1100; J2710; J2405; J3010; J1170; J1885; J2704; J2001